=== PATIENT | female | born 1945 | race Caucasian/White ===

== ENCOUNTER 2021-10-29 15:29 | Inpatient (IN) | payer MEDICARE, MEDICAID ==
[~2021-10-29] VITALS: Ht 154.9 cm; Wt 109.0 kg
--- NOTE | 2021-10-29 15:33 | NUR ---
Pt BIB EMS from [place] for syncopal event.
[2021-10-29] MEDS ORDERED: ipratropium/albuterol 3ml nebule NEB ONE (18:00)
[2021-10-29] MEDS ORDERED: pantoprazole 40 MG vial IV ONE (18:00)
[2021-10-29] MEDS ORDERED: normal saline 1000ML IV soln IVB ONE (18:00)
[2021-10-29] MEDS ORDERED: ondansetron/PF 4mg/2ml inj IV ONE (18:00)
[2021-10-29] MEDS ORDERED: pantoprazole 40MG/NS 100ML BAG 100 ML IV ONE (18:40)
[2021-10-29 18:43] LABS: BASOPHILS % (AUTO) 0.2 % (0-1); EOSINOPHILS # (AUTO) 0.1 X10'3 (0-0.9); EOSINOPHILS % (AUTO) 0.8 % (0-6); HEMATOCRIT 32.5 % (35.0-45.0); HEMOGLOBIN 10.1 g/dl (12.0-16.0); LYMPHOCYTES # (AUTO) 0.4 X10'3 (1.1-4.8); MEAN CORPUSCULAR HEMOGLOBIN 26.3 PG (27.0-31.0); MEAN CORPUSCULAR HGB CONC 31.3 g/dL (33.0-36.5); MEAN CORPUSCULAR VOLUME 84.2 FL (78-98); MEAN PLATELET VOLUME 8.7 FL (7.4-10.4); MONOCYTES % (AUTO) 5.4 % (2-12); NEUTROPHILS % (AUTO) 91.6 % (42-75); PLATELET COUNT 177 X10'3 (140-440); RED BLOOD COUNT 3.85 X10'6 (4.20-5.60); RED CELL DISTRIBUTION WIDTH 17.6 % (11.5-14.5); WHITE BLOOD COUNT 18.6 X10'3 (4.5-11.0)
[2021-10-29 19:09] LABS: ALANINE AMINOTRANSFERASE 26 U/L (12-78); ALBUMIN 2.5 G/DL (3.4-5.0); ALBUMIN/GLOBULIN RATIO 0.6 (1.1-1.5); ALKALINE PHOSPHATASE 131 IU/L (46-116); ANION GAP 12 (8-16); ANISOCYTOSIS 1+; ASPARTATE AMINO TRANSFERASE 20 U/L (10-37); BILIRUBIN,TOTAL 0.3 MG/DL (0.1-1.0); BLOOD UREA NITROGEN 47 MG/DL (7-18); BUN/CREATININE RATIO 19.7 (6.6-38.0); CALCIUM 8.4 MG/DL (8.5-10.1); CHLORIDE 96 MMOL/L (99-107); CREATININE 2.38 MG/DL (0.40-0.90); LIPASE 67 U/L (73-393); PLATELET ESTIMATE NORMAL; POTASSIUM 4.4 MMOL/L (3.5-5.1); SODIUM 130 MMOL/L (135-145); TOTAL CARBON DIOXIDE 21.6 MMOL/L (24-32); TOTAL CELLS COUNTED 100; TOTAL PROTEIN 6.7 G/DL (6.4-8.2); eGFR 20 ML/MIN
[2021-10-29 19:13] LABS: GLUCOSE 562 MG/DL (70-104)
[2021-10-29] MEDS ORDERED: nitroGLYCERIN 0.4mg/hour patch TD ONE (19:15)
[2021-10-29] MEDS ORDERED: aspirin 81mg tab.chew PO ONE (19:15)
--- NOTE | 2021-10-29 20:07 | NUR ---
NOT IN LOBBY
[2021-10-29 20:43] LABS: CLARITY,URINE CLOUDY (Clear); COLOR,URINE YELLOW (Yellow); GLUCOSE, URINE >=1000 mg/dl (Neg); KETONES,URINE TRACE mg/dl (Neg); LEUKOCYTE ESTERASE ,URINE MODERATE (Neg); NITRITES, URINE POSITIVE (Neg); OCCULT BLOOD,URINE LARGE (Neg); PH,URINE 5.5 (4.8-8.0); PROTEIN,URINE 100 mg/dl (Neg); UROBILINOGEN,URINE 0.2 E.U/dL (0.2-1.0)
[2021-10-29 20:45] LABS: UA COLLECTION TYPE STRAIGHT CATH
--- NOTE | 2021-10-29 20:46 | NUR ---
NENA (FAMILY FRIEND, [employer]) [phone]
[2021-10-29 20:50] LABS: BACTERIA,URINE 3+ /HPF (Neg); RBC,URINE TNTC /HPF (0-2); SQUAMOUS EPITHELIAL CELL,UR FEW /LPF (FEW); WBC,URINE 50-100 /HPF (0-4)
[2021-10-29 20:51] LABS: MUCUS STRANDS FEW /LPF (Neg); WBC CLUMPS,URINE MODERATE /HPF (NEGATIVE)
[2021-10-29 20:53] LABS: FINE GRANULAR CAST 0-3 /LPF (NEGATIVE)
[2021-10-29] MEDS ORDERED: CefTRIAXone/D5W-Rocephin 1gm 50 ML IV ONE (21:30)
--- NOTE | 2021-10-29 21:34 | NUR ---
ED physician notified of patients low blood pressure. after monitoring trend for one hour. ED physician states to hold nitro patch. patient denies any CP or SOB at this time. Will continue to monitor patient.
[2021-10-29] MEDS ORDERED: magnesium 2GM in 50ml NS 50 ML IV PRN (21:50)
[2021-10-29] MEDS ORDERED: magnesium Cl slow-release 64mg tablet PO PRN (21:50)
[2021-10-29] MEDS ORDERED: mag hydrox/Alum hydrox/simeth 30ml oral suspension PO PRN (21:50)
[2021-10-29] MEDS ORDERED: ondansetron/PF 4mg/2ml inj IV PRN (21:50)
[2021-10-29] MEDS ORDERED: potassium CL 10mEq/100ml bag 100 ML IV PRN (21:50)
[2021-10-29] MEDS ORDERED: POTASSIUM BICARB 20meq eff tab 20 MEQ TABLET.EFF PO PRN (21:50)
[2021-10-29] MEDS ORDERED: magnesium 4gm in 100ml NS 100 ML IV PRN (21:50)
[2021-10-29] MEDS ORDERED: dextrose 50%-water 50ml dispensing syringe IV PRN ×2 (22:00)
[2021-10-29] MEDS ORDERED: glucagon, human recombinant 1mg kit SUBCUT PRN (22:00)
[2021-10-29] MEDS ORDERED: MESSAGE TO PHARMACY PO ONE (22:00)
[2021-10-29] MEDS ORDERED: DEXTROSE 15 GM of carb/4 tabs (each vial/BOTTLE has 4 tablets) PO PRN ×2 (22:00)
[2021-10-29 22:11] LABS: MAGNESIUM 1.7 MG/DL (1.5-2.4); POTASSIUM 4.4 MMOL/L (3.5-5.1)
[2021-10-29 22:15] LABS: HEMOGLOBIN A1C 9.1 % (4.5-6.2)
[2021-10-29] MEDS ORDERED: heparin, porcine 5000 units/ml vial SQ ONE (22:35)
--- NOTE | 2021-10-29 22:38 | NUR ---
contacted admitting physician savannah in regards to patients blood glucose and troponin level. per MD one dose of insulin regular SQ 10 units and initial heparin 5000 SQ dose orders received via telephone. also inquired about elevated BNP level and the need for possible lasix. MD advised she will wait for ECHO to be done to conclude whether BNP is due to renal issues or CHF. no order for that at this time.
[2021-10-29] MEDS ORDERED: insulin regular, human 10 units/0.1 ml syringe SQ ONE (22:40)
[2021-10-29 23:15] VITALS: BP 131/70
--- NOTE | 2021-10-29 23:17 | NUR ---
Higinio Storm (son) [phone]
[2021-10-29] MEDS: normal saline 1000ml 1,000 ML IV SCH (23:54)
[2021-10-30] MEDS ORDERED: ipratropium/albuterol 3ml nebule NEB PRN (00:45)
[2021-10-30] MEDS: acetaminophen 325mg tablet PO PRN (01:55)
[2021-10-30 02:00] VITALS: BP 124/64
--- NOTE | 2021-10-30 04:45 | NUR ---
Patient T 101.5 oral at 01:50AM, given PRN Tylenol 650 mg PO at 01:55 AM, rechecked T 99.6 oral at 03:30 AM, continue to closely V/S.
[2021-10-30 06:00] VITALS: BP 117/64
--- NOTE | 2021-10-30 06:56 | NUR ---
Patient in room PCU 3012. I have received report from Pankaj HILTON and had the opportunity to ask questions and assume patient care.
[2021-10-30 07:16] LABS: BASOPHILS # (AUTO) 0.1 X10'3 (0-0.2); BASOPHILS % (AUTO) 0.6 % (0-1); EOSINOPHILS % (AUTO) 0.1 % (0-6); HEMATOCRIT 28.4 % (35.0-45.0); HEMOGLOBIN 9.1 g/dl (12.0-16.0); LYMPHOCYTES # (AUTO) 0.7 X10'3 (1.1-4.8); MEAN CORPUSCULAR HEMOGLOBIN 26.4 PG (27.0-31.0); MEAN CORPUSCULAR HGB CONC 31.8 g/dL (33.0-36.5); MEAN CORPUSCULAR VOLUME 82.9 FL (78-98); MEAN PLATELET VOLUME 8.7 FL (7.4-10.4); NEUTROPHILS # (AUTO) 12.7 X10'3 (1.8-7.7); NEUTROPHILS % (AUTO) 87.3 % (42-75); PLATELET COUNT 139 X10'3 (140-440); RED BLOOD COUNT 3.43 X10'6 (4.20-5.60); WHITE BLOOD COUNT 14.6 X10'3 (4.5-11.0)
[2021-10-30] MEDS: heparin, porcine 5000 units/ml vial SQ SCH ×2 (07:17→21:03)
[2021-10-30] MEDS: docusate sod 100mg capsule PO SCH ×2 (07:17→21:03)
[2021-10-30] MEDS: normal saline 1000ml 1,000 ML IV SCH ×2 (07:18→21:02)
[2021-10-30 07:34] LABS: ALANINE AMINOTRANSFERASE 25 U/L (12-78); ALBUMIN 2.1 G/DL (3.4-5.0); ALBUMIN/GLOBULIN RATIO 0.6 (1.1-1.5); ALKALINE PHOSPHATASE 108 IU/L (46-116); ANION GAP 10 (8-16); ASPARTATE AMINO TRANSFERASE 20 U/L (10-37); BILIRUBIN,TOTAL 0.2 MG/DL (0.1-1.0); BLOOD UREA NITROGEN 47 MG/DL (7-18); CALCIUM 7.7 MG/DL (8.5-10.1); CHLORIDE 103 MMOL/L (99-107); CREATININE 2.14 MG/DL (0.40-0.90); GLUCOSE 252 MG/DL (70-104); MAGNESIUM 1.7 MG/DL (1.5-2.4); POTASSIUM 3.7 MMOL/L (3.5-5.1); SODIUM 136 MMOL/L (135-145); TOTAL PROTEIN 5.7 G/DL (6.4-8.2); eGFR 22 ML/MIN
[2021-10-30 07:47] LABS: TOTAL CELLS COUNTED 100
[2021-10-30 07:48] LABS: GIANT PLATELET FEW; PLATELET ESTIMATE DECREASED
[2021-10-30 07:49] LABS: ANISOCYTOSIS 1+
[2021-10-30 07:51] LABS: TOXIC VACUOLATION FEW
[2021-10-30] MEDS: K and/or MAG REPLACEMENT MC SCH ×2 (08:00→20:00)
--- NOTE | 2021-10-30 08:21 | NUR ---
PAGER ID: [phone] MESSAGE: [id number] Tamra, + Blood cultures: gram neg. rods, samples drawn on 10/29 aerobic bottles x2. Thank you Miriam HILTON U
--- NOTE | 2021-10-30 08:46 | NUR ---
Spoke with MD Marinelli phone about + blood cultures, gram neg. rods sample pulled on 10/29. Miscommunication about blood cultures to wrong MD in am.
--- NOTE | 2021-10-30 09:01 | NUR ---
Diabetes consult: Pt w/ hx of DM A1c 9.1 per EMR. Pt was sleeping and not very arousable. Written DM ed w/ RD contact info placed on bedside table. Addendum: 10/30/21 at [address] Amended: Links added.
[2021-10-30] MEDS: insulin Lispro (HumaLOG) vial - multi-dose SQ SCH ×2 (09:38→14:16)
[2021-10-30 11:00] VITALS: BP 132/65
[2021-10-30] MEDS ORDERED: nystatin 15 GM powder TP PRN (12:25)
[2021-10-30] MEDS: HYDROcodone/acetaminophen 5mg/325mg tablet PO PRN (12:36)
[2021-10-30] MEDS ORDERED: ALBU18HF2 IH (14:57)
[2021-10-30] MEDS ORDERED: LORA10TA7 PO (14:57)
[2021-10-30] MEDS ORDERED: METF-1203 PO (14:57)
[2021-10-30] MEDS ORDERED: FLUT1BLS13 IH (14:57)
[2021-10-30] MEDS ORDERED: THYR120T2 PO (14:57)
[2021-10-30] MEDS ORDERED: IBUP-860 PO ×2 (14:57)
[2021-10-30] MEDS ORDERED: MULT-1219 PO (14:59)
[2021-10-30 15:00] VITALS: BP 140/64
[2021-10-30] MEDS ORDERED: ELDE1CAP PO (15:00)
[2021-10-30] MEDS ORDERED: CHOL400T8 PO (15:01)
[2021-10-30 15:33] LABS: CHOL/HDL RATIO 5.8 (0.00-4.99); CHOLESTEROL 138 MG/DL (0-200); HDL CHOLESTEROL 24 MG/DL (35-60); LDL CHOLESTEROL 80 MG/DL (50-100); TRIGLYCERIDES 166 MG/DL (20-135)
--- NOTE | 2021-10-30 15:55 | NUR ---
PAGER ID: [phone] MESSAGE: [id number] critical trop. 130, thank you. Miriam HILTON U
[2021-10-30 18:00] VITALS: BP 133/69
--- NOTE | 2021-10-30 18:28 | NUR ---
Problems reprioritized. Patient report given, questions answered & plan of care reviewed with Iram HILTON.
--- NOTE | 2021-10-30 19:05 | NUR ---
Pt report recieved from YOBANI Pineda. All patient questions, concerns and priorities have been met at this time.
[2021-10-30] MEDS: insulin glargine (Lantus) pen - multi-dose SQ SCH (21:00)
[2021-10-30] MEDS: CefTRIAXone/D5W-Rocephin 1gm 50 ML IV SCH (21:03)
[2021-10-30 22:00] VITALS: BP 131/71
[2021-10-31] MEDS: POTASSIUM BICARB 20meq eff tab 20 MEQ TABLET.EFF PO PRN (01:06)
[2021-10-31 02:00] VITALS: BP 158/69
--- NOTE | 2021-10-31 02:14 | NUR ---
At 1921 pt went into a 7 second burst of torsades. Pt remained alert and vital signs stable. Dr. Izaguirre notified. EKG ordered and completed. Nursing communication from physician to keep Magnesium levels greater than 2 and Potassium greater than 4. Will continue to monitor patient status.
[2021-10-31] MEDS: normal saline 1000ml 1,000 ML IV SCH ×3 (03:50→23:54)
[2021-10-31 06:00] VITALS: BP 120/65
--- NOTE | 2021-10-31 06:23 | NUR ---
Patient in room PCU 3012. I have received report from Iram HILTON and had the opportunity to ask questions and assume patient care. RN discussed cardiac episode overnight.
--- NOTE | 2021-10-31 06:34 | NUR ---
Report given to YOBANI Pineda. All patient concerns, questions and priorities have been met at this time.
[2021-10-31] MEDS: heparin, porcine 5000 units/ml vial SQ SCH ×2 (07:12→21:19)
[2021-10-31] MEDS: docusate sod 100mg capsule PO SCH ×2 (07:12→21:19)
[2021-10-31] MEDS: magnesium hydroxide 30ml (MOM) UD suspension PO PRN (07:12)
[2021-10-31] MEDS: acetaminophen 325mg tablet PO PRN (07:13)
[2021-10-31] MEDS: K and/or MAG REPLACEMENT MC SCH ×2 (08:00→20:00)
[2021-10-31 08:06] LABS: BASOPHILS # (AUTO) 0.1 X10'3 (0-0.2); BASOPHILS % (AUTO) 0.5 % (0-1); EOSINOPHILS # (AUTO) 0.1 X10'3 (0-0.9); EOSINOPHILS % (AUTO) 0.5 % (0-6); HEMATOCRIT 28.5 % (35.0-45.0); HEMOGLOBIN 8.9 g/dl (12.0-16.0); LYMPHOCYTES % (AUTO) 7.1 % (21-51); MEAN CORPUSCULAR HEMOGLOBIN 26.4 PG (27.0-31.0); MEAN CORPUSCULAR HGB CONC 31.3 g/dL (33.0-36.5); MEAN CORPUSCULAR VOLUME 84.4 FL (78-98); MEAN PLATELET VOLUME 8.7 FL (7.4-10.4); MONOCYTES # (AUTO) 1.5 X10'3 (0-0.9); MONOCYTES % (AUTO) 10.4 % (2-12); NEUTROPHILS # (AUTO) 11.8 X10'3 (1.8-7.7); NEUTROPHILS % (AUTO) 81.5 % (42-75); PLATELET COUNT 127 X10'3 (140-440); RED BLOOD COUNT 3.38 X10'6 (4.20-5.60); RED CELL DISTRIBUTION WIDTH 17.2 % (11.5-14.5); WHITE BLOOD COUNT 14.5 X10'3 (4.5-11.0)
[2021-10-31 08:33] LABS: ALANINE AMINOTRANSFERASE 29 U/L (12-78); ALBUMIN/GLOBULIN RATIO 0.5 (1.1-1.5); ALKALINE PHOSPHATASE 114 IU/L (46-116); ANION GAP 13 (8-16); ASPARTATE AMINO TRANSFERASE 24 U/L (10-37); BILIRUBIN,TOTAL 0.2 MG/DL (0.1-1.0); BLOOD UREA NITROGEN 46 MG/DL (7-18); CALCIUM 7.6 MG/DL (8.5-10.1); CHLORIDE 103 MMOL/L (99-107); CREATININE 1.77 MG/DL (0.40-0.90); GLUCOSE 233 MG/DL (70-104); MAGNESIUM 2.4 MG/DL (1.5-2.4); POTASSIUM 4.3 MMOL/L (3.5-5.1); SODIUM 136 MMOL/L (135-145); TOTAL CARBON DIOXIDE 20.2 MMOL/L (24-32); TOTAL PROTEIN 5.8 G/DL (6.4-8.2); eGFR 28 ML/MIN
[2021-10-31 09:20] LABS: ANISOCYTOSIS 1+; LARGE PLATELETS FEW; PLATELET ESTIMATE DECREASED; TOTAL CELLS COUNTED 100
[2021-10-31] MEDS: insulin Lispro (HumaLOG) vial - multi-dose SQ SCH ×2 (09:35→14:09)
[2021-10-31 11:00] VITALS: BP 122/62
[2021-10-31] MEDS ORDERED: albuterol 2.5 MG/3 ML nebule NEB PRN (11:10)
[2021-10-31 15:00] VITALS: BP 124/60
--- NOTE | 2021-10-31 17:42 | NUR ---
PAGER ID: [phone] MESSAGE: [id number] Tamra, requesting either nebulized treatments or cough drops for occasional cough, thank you. Miriam HILTON
--- NOTE | 2021-10-31 18:30 | NUR ---
Problems reprioritized. Patient report given, questions answered & plan of care reviewed with Iram HILTON.
[2021-10-31 19:00] VITALS: BP 120/67
[2021-10-31] MEDS: budesonide 0.5mg/2ml UD nebule IH SCH (19:58)
[2021-10-31] MEDS: albuterol 2.5 MG/3 ML nebule NEB SCH (19:58)
[2021-10-31] MEDS: CefTRIAXone/D5W-Rocephin 1gm 50 ML IV SCH (21:18)
[2021-10-31] MEDS: guaiFENesin/DM 10ml UD oral syrup PO PRN (21:20)
[2021-10-31] MEDS: insulin glargine (Lantus) pen - multi-dose SQ SCH (21:35)
[2021-10-31 22:00] VITALS: BP 126/60
[2021-11-01 02:00] VITALS: BP 127/85
[2021-11-01] MEDS: HYDROcodone/acetaminophen 5mg/325mg tablet PO PRN (02:08)
[2021-11-01] MEDS: albuterol 2.5 MG/3 ML nebule NEB SCH ×4 (02:47→20:01)
[2021-11-01 06:00] VITALS: BP 130/63
--- NOTE | 2021-11-01 06:28 | NUR ---
Patient in room PCU 3012. I have received report from Iram HILTON and had the opportunity to ask questions and assume patient care.
[2021-11-01 07:04] LABS: BASOPHILS # (AUTO) 0.1 X10'3 (0-0.2); BASOPHILS % (AUTO) 0.6 % (0-1); EOSINOPHILS # (AUTO) 0.2 X10'3 (0-0.9); EOSINOPHILS % (AUTO) 1.5 % (0-6); HEMATOCRIT 26.8 % (35.0-45.0); HEMOGLOBIN 8.4 g/dl (12.0-16.0); LYMPHOCYTES # (AUTO) 1.5 X10'3 (1.1-4.8); LYMPHOCYTES % (AUTO) 11.2 % (21-51); MEAN CORPUSCULAR HEMOGLOBIN 26.2 PG (27.0-31.0); MEAN CORPUSCULAR HGB CONC 31.2 g/dL (33.0-36.5); MEAN CORPUSCULAR VOLUME 83.9 FL (78-98); MEAN PLATELET VOLUME 8.7 FL (7.4-10.4); MONOCYTES # (AUTO) 1.7 X10'3 (0-0.9); MONOCYTES % (AUTO) 12.4 % (2-12); NEUTROPHILS # (AUTO) 10.1 X10'3 (1.8-7.7); NEUTROPHILS % (AUTO) 74.3 % (42-75); PLATELET COUNT 136 X10'3 (140-440); RED BLOOD COUNT 3.19 X10'6 (4.20-5.60); RED CELL DISTRIBUTION WIDTH 17.4 % (11.5-14.5); WHITE BLOOD COUNT 13.6 X10'3 (4.5-11.0)
[2021-11-01 07:13] LABS: ALANINE AMINOTRANSFERASE 28 U/L (12-78); ALBUMIN 1.7 G/DL (3.4-5.0); ALBUMIN/GLOBULIN RATIO 0.5 (1.1-1.5); ALKALINE PHOSPHATASE 104 IU/L (46-116); ANION GAP 11 (8-16); ASPARTATE AMINO TRANSFERASE 21 U/L (10-37); BILIRUBIN,TOTAL 0.1 MG/DL (0.1-1.0); BLOOD UREA NITROGEN 35 MG/DL (7-18); CALCIUM 7.3 MG/DL (8.5-10.1); CHLORIDE 108 MMOL/L (99-107); CREATININE 1.59 MG/DL (0.40-0.90); GLUCOSE 203 MG/DL (70-104); MAGNESIUM 2.1 MG/DL (1.5-2.4); POTASSIUM 3.9 MMOL/L (3.5-5.1); SODIUM 140 MMOL/L (135-145); TOTAL CARBON DIOXIDE 21.3 MMOL/L (24-32); TOTAL PROTEIN 5.4 G/DL (6.4-8.2); eGFR 31 ML/MIN
[2021-11-01] MEDS: heparin, porcine 5000 units/ml vial SQ SCH ×2 (07:35→19:31)
[2021-11-01] MEDS: thyroid, pork 30mg tablet PO SCH (07:35)
[2021-11-01] MEDS: magnesium hydroxide 30ml (MOM) UD suspension PO PRN (07:35)
[2021-11-01] MEDS: docusate sod 100mg capsule PO SCH ×2 (07:35→19:30)
[2021-11-01] MEDS: POTASSIUM BICARB 20meq eff tab 20 MEQ TABLET.EFF PO PRN (07:41)
[2021-11-01] MEDS: K and/or MAG REPLACEMENT MC SCH ×2 (07:42→19:31)
[2021-11-01] MEDS: budesonide 0.5mg/2ml UD nebule IH SCH ×2 (08:11→20:01)
[2021-11-01 08:12] LABS: ANISOCYTOSIS 1+; PLATELET ESTIMATE DECREASED; TOTAL CELLS COUNTED 100
[2021-11-01] MEDS: furosemide 40mg/4ml inj IV SCH ×2 (09:39→19:30)
[2021-11-01] MEDS: acetaminophen 325mg tablet PO PRN (09:40)
[2021-11-01] MEDS: insulin Lispro (HumaLOG) vial - multi-dose SQ SCH ×3 (09:56→19:28)
[2021-11-01 11:00] VITALS: BP 138/70
[2021-11-01 15:00] VITALS: BP 148/67
[2021-11-01 18:00] VITALS: BP 139/64
--- NOTE | 2021-11-01 18:28 | NUR ---
Problems reprioritized. Patient report given, questions answered & plan of care reviewed with Caroline HILTON.
--- NOTE | 2021-11-01 18:28 | NUR ---
Patient in room U 3012. I have received report from YOBANI CHAIDEZ and had the opportunity to ask questions and assume patient care. Addendum: 11/01/21 at 1829 by Caroline Bell RN Amended: Links added.
[2021-11-01] MEDS: CefTRIAXone/D5W-Rocephin 1gm 50 ML IV SCH (21:11)
[2021-11-01] MEDS: insulin glargine (Lantus) pen - multi-dose SQ SCH (21:46)
[2021-11-01 22:30] VITALS: BP 118/70
[2021-11-02] MEDS: guaiFENesin/DM 10ml UD oral syrup PO PRN ×2 (01:58→20:06)
[2021-11-02] MEDS: acetaminophen 325mg tablet PO PRN (01:59)
--- NOTE | 2021-11-02 02:15 | NUR ---
PT SPILLED HER WATER IN THE BED. ASSISTED IN TURNING DID HS CARE AND VSS. PT PLEASANT IN BED NOT WALKING.
[2021-11-02] MEDS: albuterol 2.5 MG/3 ML nebule NEB SCH ×4 (02:20→19:56)
[2021-11-02 02:30] VITALS: BP_SYST 118; BP_SYST 97; BP_DIAS 35; BP_DIAS 70
[2021-11-02 06:00] VITALS: BP 129/56
--- NOTE | 2021-11-02 06:30 | NUR ---
Problems reprioritized. Patient report given, questions answered & plan of care reviewed wITH YOBANI LONGORIA. Addendum: 11/02/21 at 0631 by Caroline Bell RN Amended: Links added.
[2021-11-02] MEDS: K and/or MAG REPLACEMENT MC SCH ×3 (08:00→20:12)
[2021-11-02] MEDS: heparin, porcine 5000 units/ml vial SQ SCH ×2 (08:04→20:10)
[2021-11-02] MEDS: thyroid, pork 30mg tablet PO SCH (08:04)
[2021-11-02] MEDS: furosemide 40mg/4ml inj IV SCH ×2 (08:04→20:10)
[2021-11-02] MEDS: docusate sod 100mg capsule PO SCH ×2 (08:05→20:07)
[2021-11-02 08:16] LABS: BASOPHILS # (AUTO) 0.1 X10'3 (0-0.2); BASOPHILS % (AUTO) 0.8 % (0-1); EOSINOPHILS # (AUTO) 0.1 X10'3 (0-0.9); EOSINOPHILS % (AUTO) 0.5 % (0-6); HEMATOCRIT 27.6 % (35.0-45.0); HEMOGLOBIN 8.8 g/dl (12.0-16.0); LYMPHOCYTES # (AUTO) 1.5 X10'3 (1.1-4.8); LYMPHOCYTES % (AUTO) 8.2 % (21-51); MEAN CORPUSCULAR HEMOGLOBIN 26.3 PG (27.0-31.0); MEAN CORPUSCULAR HGB CONC 31.9 g/dL (33.0-36.5); MEAN CORPUSCULAR VOLUME 82.6 FL (78-98); MEAN PLATELET VOLUME 8.3 FL (7.4-10.4); MONOCYTES # (AUTO) 1.9 X10'3 (0-0.9); NEUTROPHILS % (AUTO) 80.5 % (42-75); PLATELET COUNT 153 X10'3 (140-440); RED BLOOD COUNT 3.35 X10'6 (4.20-5.60); RED CELL DISTRIBUTION WIDTH 16.8 % (11.5-14.5); WHITE BLOOD COUNT 18.6 X10'3 (4.5-11.0)
[2021-11-02 08:43] LABS: ALANINE AMINOTRANSFERASE 37 U/L (12-78); ALBUMIN 1.9 G/DL (3.4-5.0); ALBUMIN/GLOBULIN RATIO 0.5 (1.1-1.5); ALKALINE PHOSPHATASE 107 IU/L (46-116); ANION GAP 10 (8-16); ASPARTATE AMINO TRANSFERASE 29 U/L (10-37); BILIRUBIN,TOTAL 0.2 MG/DL (0.1-1.0); BLOOD UREA NITROGEN 28 MG/DL (7-18); BUN/CREATININE RATIO 17.7 (6.6-38.0); CHLORIDE 103 MMOL/L (99-107); CREATININE 1.58 MG/DL (0.40-0.90); GLUCOSE 199 MG/DL (70-104); MAGNESIUM 1.8 MG/DL (1.5-2.4); POTASSIUM 3.2 MMOL/L (3.5-5.1); SODIUM 141 MMOL/L (135-145); TOTAL CARBON DIOXIDE 27.6 MMOL/L (24-32); TOTAL PROTEIN 5.8 G/DL (6.4-8.2); eGFR 32 ML/MIN
[2021-11-02 08:47] LABS: ANISOCYTOSIS 1+; PLATELET ESTIMATE NORMAL; TOTAL CELLS COUNTED 100
[2021-11-02 08:48] LABS: TOXIC GRANULATION 1+
[2021-11-02 08:49] LABS: HYPOCHROMASIA 1+; POLYCHROMASIA FEW
[2021-11-02] MEDS: budesonide 0.5mg/2ml UD nebule IH SCH ×2 (09:34→19:56)
[2021-11-02] MEDS ORDERED: magnesium 2GM in 50ml NS 50 ML IV PRN (10:05)
[2021-11-02] MEDS ORDERED: magnesium Cl slow-release 64mg tablet PO PRN (10:05)
[2021-11-02] MEDS ORDERED: potassium CL 10mEq/100ml bag 100 ML IV PRN (10:05)
[2021-11-02] MEDS ORDERED: magnesium 4gm in 100ml NS 100 ML IV PRN (10:05)
[2021-11-02] MEDS ORDERED: POTASSIUM BICARB 20meq eff tab 20 MEQ TABLET.EFF PO PRN (10:05)
[2021-11-02] MEDS: insulin Lispro (HumaLOG) vial - multi-dose SQ SCH ×4 (10:33→22:51)
[2021-11-02] MEDS: POTASSIUM BICARB 20meq eff tab 20 MEQ TABLET.EFF PO PRN ×3 (10:43→20:06)
[2021-11-02 11:00] VITALS: BP 122/59
[2021-11-02 15:30] VITALS: BP 121/61
[2021-11-02 18:00] VITALS: BP 131/60
--- NOTE | 2021-11-02 18:29 | NUR ---
Patient in room U 3012. I have received report from YOBANI LONGORIA and had the opportunity to ask questions and assume patient care. Addendum: 11/02/21 at 1829 by Caroline Bell RN Amended: Links added.
[2021-11-02] MEDS: HYDROcodone/acetaminophen 10/325mg tab PO PRN (20:07)
[2021-11-02] MEDS: CefTRIAXone/D5W-Rocephin 1gm 50 ML IV SCH (20:14)
[2021-11-02 22:00] VITALS: BP 100/60
[2021-11-02] MEDS: insulin glargine (Lantus) pen - multi-dose SQ SCH (22:53)
[2021-11-03] MEDS: albuterol 2.5 MG/3 ML nebule NEB SCH ×4 (02:28→19:54)
[2021-11-03 02:30] VITALS: BP 114/63
[2021-11-03 06:00] VITALS: BP 132/58
--- NOTE | 2021-11-03 07:20 | NUR ---
Problems reprioritized. Patient report given, questions answered & plan of care reviewed with YOBANI CARRILLO. Addendum: 11/03/21 at 0721 by Caroline Bell RN Amended: Links added.
[2021-11-03 07:23] LABS: ALANINE AMINOTRANSFERASE 47 U/L (12-78); ALBUMIN/GLOBULIN RATIO 0.5 (1.1-1.5); ALKALINE PHOSPHATASE 109 IU/L (46-116); ANION GAP 8 (8-16); ASPARTATE AMINO TRANSFERASE 53 U/L (10-37); BILIRUBIN,TOTAL 0.2 MG/DL (0.1-1.0); BLOOD UREA NITROGEN 29 MG/DL (7-18); BUN/CREATININE RATIO 20.1 (6.6-38.0); CALCIUM 7.2 MG/DL (8.5-10.1); CHLORIDE 100 MMOL/L (99-107); CREATININE 1.44 MG/DL (0.40-0.90); GLUCOSE 129 MG/DL (70-104); POTASSIUM 3.4 MMOL/L (3.5-5.1); SODIUM 139 MMOL/L (135-145); TOTAL CARBON DIOXIDE 31.1 MMOL/L (24-32); TOTAL PROTEIN 5.8 G/DL (6.4-8.2); eGFR 35 ML/MIN
[2021-11-03 07:26] LABS: BASOPHILS # (AUTO) 0.1 X10'3 (0-0.2); BASOPHILS % (AUTO) 0.4 % (0-1); EOSINOPHILS # (AUTO) 0.3 X10'3 (0-0.9); EOSINOPHILS % (AUTO) 1.5 % (0-6); HEMATOCRIT 28.3 % (35.0-45.0); LYMPHOCYTES # (AUTO) 1.7 X10'3 (1.1-4.8); LYMPHOCYTES % (AUTO) 9.1 % (21-51); MEAN CORPUSCULAR HEMOGLOBIN 26.7 PG (27.0-31.0); MEAN CORPUSCULAR HGB CONC 31.8 g/dL (33.0-36.5); MONOCYTES # (AUTO) 2.1 X10'3 (0-0.9); MONOCYTES % (AUTO) 11.2 % (2-12); NEUTROPHILS # (AUTO) 14.5 X10'3 (1.8-7.7); NEUTROPHILS % (AUTO) 77.8 % (42-75); PLATELET COUNT 178 X10'3 (140-440); RED BLOOD COUNT 3.36 X10'6 (4.20-5.60); RED CELL DISTRIBUTION WIDTH 17.1 % (11.5-14.5); WHITE BLOOD COUNT 18.6 X10'3 (4.5-11.0)
[2021-11-03] MEDS: budesonide 0.5mg/2ml UD nebule IH SCH ×2 (07:50→19:54)
[2021-11-03 08:09] LABS: ANISOCYTOSIS 1+; HYPOCHROMASIA 1+; NUCLEATED RED BLOOD CELLS 1 /100WBC (0-0); PLATELET ESTIMATE NORMAL; POLYCHROMASIA 1+; TOTAL CELLS COUNTED 100; TOXIC GRANULATION 1+
[2021-11-03] MEDS: thyroid, pork 30mg tablet PO SCH (08:48)
[2021-11-03] MEDS: docusate sod 100mg capsule PO SCH ×2 (08:48→19:28)
[2021-11-03] MEDS: POTASSIUM BICARB 20meq eff tab 20 MEQ TABLET.EFF PO PRN ×2 (08:49→16:08)
[2021-11-03] MEDS: furosemide 40mg/4ml inj IV SCH ×2 (08:49→19:28)
[2021-11-03] MEDS: heparin, porcine 5000 units/ml vial SQ SCH ×2 (08:49→19:29)
--- NOTE | 2021-11-03 08:49 | NUR ---
Initial; Pt admitted w/ Sepsis, UTI, acute on chronic cor pulmonale, and MARSHALL per EMR. Currently on Renal diet w/ avg intake 35% of meals not meeting needs. Renal diet no indicated in this instance. Recommend liberalizing to Regular diet in view of poor PO. Recommend Ensure High protein TID to assist w/ meeting needs. LBM 11/01 receiving routine and PRN bowel care. Will continue to monitor. Recs; 1. Change to Regular diet. If pt consumes at least 75% of meals then Carb control 2. Ensure High protein TID; pending MD verification 3. Bowel care per rx 4. Scaled wts Addendum: 11/03/21 at [address] Amended: Links added.
[2021-11-03] MEDS: K and/or MAG REPLACEMENT MC SCH ×4 (08:50→20:00)
[2021-11-03] MEDS: HYDROcodone/acetaminophen 10/325mg tab PO PRN ×2 (09:00→19:28)
[2021-11-03] MEDS: insulin Lispro (HumaLOG) vial - multi-dose SQ SCH ×3 (10:10→19:40)
[2021-11-03 11:00] VITALS: BP 111/46
[2021-11-03] MEDS ORDERED: lactose-reduced food (Ensure High Protein) 237ml bottle PO SCH (13:00)
[2021-11-03 15:00] VITALS: BP 122/53
[2021-11-03 18:00] VITALS: BP 107/51
--- NOTE | 2021-11-03 18:33 | NUR ---
Patient in room PCU 3012. I have received report from YOBANI CARRILLO and had the opportunity to ask questions and assume patient care. Addendum: 11/03/21 at 1833 by Caroline Bell RN Amended: Links added.
[2021-11-03] MEDS: guaiFENesin/DM 10ml UD oral syrup PO PRN (19:28)
--- NOTE | 2021-11-03 21:50 | NUR ---
iv tubing changed
[2021-11-03 22:00] VITALS: BP 106/55
[2021-11-03] MEDS: CefTRIAXone/D5W-Rocephin 1gm 50 ML IV SCH (22:04)
[2021-11-03] MEDS: insulin glargine (Lantus) pen - multi-dose SQ SCH (22:13)
--- NOTE | 2021-11-04 00:14 | NUR ---
retsing eyes closed without changes. pure wick working pt with urine output.
--- NOTE | 2021-11-04 01:54 | NUR ---
resting without changes.
[2021-11-04 02:15] VITALS: BP 110/54
--- NOTE | 2021-11-04 02:46 | NUR ---
pt awake waiting for Rt Tx. Rt now up and going for pt's Resp tx.
[2021-11-04] MEDS: albuterol 2.5 MG/3 ML nebule NEB SCH ×2 (02:47→07:29)
--- NOTE | 2021-11-04 06:49 | NUR ---
Problems reprioritized. Patient report given, questions answered & plan of care reviewed with YOBANI LONGORIA. Addendum: 11/04/21 at 0650 by Caroline Bell RN Amended: Links added.
[2021-11-04] MEDS: budesonide 0.5mg/2ml UD nebule IH SCH (07:29)
[2021-11-04] MEDS: heparin, porcine 5000 units/ml vial SQ SCH (07:52)
[2021-11-04] MEDS: thyroid, pork 30mg tablet PO SCH (07:52)
[2021-11-04] MEDS: furosemide 40mg/4ml inj IV SCH (07:52)
[2021-11-04] MEDS: docusate sod 100mg capsule PO SCH (07:52)
[2021-11-04] MEDS: K and/or MAG REPLACEMENT MC SCH ×2 (08:00)
[2021-11-04 09:14] VITALS: BP 103/58
--- NOTE | 2021-11-04 09:20 | NUR ---
Patient in room PCU 3012. I have received report from YOBANI LONGORIA and had the opportunity to ask questions and assume patient care.
[2021-11-04] MEDS ORDERED: CEFT1VIA13 IV (10:00)
[2021-11-04] MEDS ORDERED: FURO40TA4 PO (10:00)
--- NOTE | 2021-11-04 10:27 | NUR ---
Unable to give humalog as not available from pharmacy yet. Patient is aware.
[2021-11-04 11:07] VITALS: BP 141/65
[2021-11-04] MEDS: POTASSIUM BICARB 20meq eff tab 20 MEQ TABLET.EFF PO PRN (12:36)
--- NOTE | 2021-11-04 12:57 | NUR ---
report called to TCU to Nurse Castro. Patient pickling grader time is 1400.
[2021-11-04] MEDS: insulin Lispro (HumaLOG) vial - multi-dose SQ SCH (13:42)
--- NOTE | 2021-11-04 15:12 | NUR ---
This RN was at lunch. Covering RN Sade assisted in dc of patient. Patient was dc'd with all personal belongings to [facility] by Myriam Cargo. IV was kept in place per request of case advocate Ambar as patient will be receiving IV antibiotic at [facility].
== END 2021-11-04 14:15 | DRG 871 ==
LOC: ER 15:30 → ED HOLD 21:59 → PCU 3S 23:14
PROVIDERS: ADMIT Internal Medicine; ATTEND Internal Medicine
DX: A41.59 Other Gram-negative sepsis (principal); I21.A1 Myocardial infarction type 2; J96.01 Acute respiratory failure with hypoxia; N39.0 Urinary tract infection, site not specified; J45.901 Unspecified asthma with (acute) exacerbation; N17.9 Acute kidney failure, unspecified; Z68.42 Body mass index [BMI] 45.0-49.9, adult; Z20.822 Contact with and (suspected) exposure to COVID-19; I50.9 Heart failure, unspecified; Z60.2 Problems related to living alone; E66.01 Morbid (severe) obesity due to excess calories; E87.6 Hypokalemia; B96.1 Klebsiella pneumoniae [K. pneumoniae] as the cause of diseases classified elsewhere; R26.9 Unspecified abnormalities of gait and mobility; R26.2 Difficulty in walking, not elsewhere classified; M79.7 Fibromyalgia; D64.9 Anemia, unspecified; I27.81 Cor pulmonale (chronic); E11.65 Type 2 diabetes mellitus with hyperglycemia; E11.22 Type 2 diabetes mellitus with diabetic chronic kidney disease; N18.30 Chronic kidney disease, stage 3 unspecified; M19.90 Unspecified osteoarthritis, unspecified site; E03.9 Hypothyroidism, unspecified; W01.0XXA Fall on same level from slipping, tripping and stumbling without subsequent striking against object, initial encounter; R31.9 Hematuria, unspecified; R35.89 Other polyuria; M25.552 Pain in left hip; Z85.3 Personal history of malignant neoplasm of breast; Y93.89 Activity, other specified; Y92.098 Other place in other non-institutional residence as the place of occurrence of the external cause; Y99.8 Other external cause status; Z88.5 Allergy status to narcotic agent; Z91.012 Allergy to eggs; Z91.040 Latex allergy status
CPT/HCPCS: 36415; 71045; 73600; 76770; 80053; 80061; 81001; 82948; 83036; 83605; 83690; 83735; 83880; 84132; 84145; 84443; 84484; 85007; 85025; 87040; 87077; 87081; 87088; 87186; 87811; 93005; 93306; 94640; 94760; 96365; 97110; 97161; 97530; 99285; A4615; C1758; C9113; G0378; J0696; J1644; J1815; J1940; J2405; J3475; J7030; J7040